=== PATIENT | male | born 1985 | race Caucasian/White ===

== ENCOUNTER 2016-12-03 12:38 | Outpatient (CLI) | payer OTHER ==
--- NOTE | 2016-12-03 15:46 | MRI Report ---
EXAM: MRI CERVICAL SPINE WITHOUT CONTRAST EXAM DATE: 12/03/2016 01:19 PM. CLINICAL HISTORY: Left upper extremity radiculopathy for 6 months. COMPARISONS: None. TECHNIQUE: Multiplanar, multisequence T1-weighted and fluid-sensitive sequences of the cervical spine without contrast. Other: None. FINDINGS: Neurologic Structures: There is mild distortion of the cord at the C6-C7 level, secondary to artifact from the disk. The cord appears otherwise normal. Alignment: Slight flattening of the cervical lordosis. Bone Marrow: Altered marrow signal at the C6-C7 level secondary to artifact from the C6-C7 diskectomy and arthroplasty. Interspace Levels/Facets: C1-C2: Unremarkable. C2-C3: Unremarkable. C3-C4: There is a right foraminal osteophyte causing mild right foraminal narrowing. There is also mi ld left foraminal narrowing. C4-C5: Unremarkable. C5-C6: Unremarkable. C6-C7: Artifact from the disk. There appears to be mild narrowing of the left neural foramen secondar y to an uncovertebral osteophyte. The finding is difficult to verify due to the metallic artifact. Th e right neural foramen is patent. C7-T1: Unremarkable. Musculature: Normal. No edema or fatty atrophy. Other: The paravertebral and prevertebral soft tissues are normal. IMPRESSION: 1. Flattening of the cervical lordosis with metallic artifact at C6-C7 consistent with the clinical h istory. 2. Mild bilateral foraminal narrowing at C3-C4. Possible mild left C6-C7 foraminal narrowing. [facility] Referring Provider Line: [phone] SITE ID: [id number]
== END 2016-12-03 12:39 | disposition home or self-care (01) ==
LOC: DI 12:38
PROVIDERS: ATTEND Anesthesiology Pain Medicine
DX: M25.78 Osteophyte, vertebrae (principal); M54.12 Radiculopathy, cervical region
CPT/HCPCS: 72141